=== PATIENT | male | born 1990 | race Caucasian/White ===

== ENCOUNTER 2024-04-03 13:37 | Outpatient (REF) | payer BC, SELFPAY ==
[2024-04-05 17:11] LABS: Acrosom Defect 24.5 %; Appearance Normal; Container Type 50 mL Conical; Germ Cells/mL 0.32 x10(6) (<4.00); Grade 2.5 (>=2.5); Head Shape Abnormal 27.5 %; Midpiece Defect 21.5 %; Motile/Ejaculate 11.3 x10(6) (>=9.0); Motile/mL 2.5 x10(6) (>=6.0); Motility 51 % (>=40); Semen Volume 4.5 mL (>=1.5); Sperm/mL 4.9 x10(6) (>=15.0); Strict Morph NL 3.5 % (>=4.0); Study Type Semen; WBC/mL 0.02 x10(6) (<1.00); pH 7.5 (>=7.2)
== END 2024-04-03 13:38 | disposition home or self-care (01) ==
LOC: LBN 13:37
PROVIDERS: PCP Family Medicine; Visit Provider Obstetrics & Gynecology
DX: N46.9 Male infertility, unspecified (principal); B07.0 Plantar wart
CPT/HCPCS: 89240; 89310

== ENCOUNTER 2024-04-11 15:01 | Outpatient (REF) | payer BC, SELFPAY ==
[2024-04-15 14:34] LABS: Acrosom Defect 21.5 %; Appearance Normal; Container Type 50 mL Conical; Germ Cells/mL 0.38 x10(6) (<4.00); Grade 2.5 (>=2.5); Head Shape Abnormal 31.5 %; Midpiece Defect 16.5 %; Motile/Ejaculate 75.5 x10(6) (>=9.0); Motile/mL 15.1 x10(6) (>=6.0); Motility 60 % (>=40); Sperm/mL 25.2 x10(6) (>=15.0); Study Type Semen; Tail Defect 23.5 %; pH 7.5 (>=7.2)
== END 2024-04-11 15:02 | disposition home or self-care (01) ==
LOC: LBN 15:01
PROVIDERS: PCP Family Medicine; Visit Provider Obstetrics & Gynecology
DX: Z31.69 Encounter for other general counseling and advice on procreation (principal)
CPT/HCPCS: 89240; 89310

== ENCOUNTER 2025-06-18 02:38 | Outpatient (CLI) | payer BC, SELFPAY ==
[2025-06-18 10:25] LABS: Hemoglobin A1C 4.9 % (<5.7)
[2025-06-18 13:38] LABS: Cholesterol 184 mg/dL (<200); HDL Cholesterol 76 mg/dL (>or=40)
[2025-06-18 18:31] LABS: Hepatitis C Ab w Rflx HCV PCR Negative (Negative)
[2025-06-18 18:34] LABS: HBs Antibody, Quant 4.0 mIU/mL (See Note); Hepatitis B Surface Antigen Negative (Negative)
== END 2025-06-18 02:39 | disposition home or self-care (01) ==
LOC: LBO 02:38
PROVIDERS: PCP Family Medicine; Visit Provider Family Medicine
DX: E78.5 Hyperlipidemia, unspecified (principal); R73.9 Hyperglycemia, unspecified; Z11.59 Encounter for screening for other viral diseases
CPT/HCPCS: 36415; 80061; 83695; 86704; 86706; 86803; 87340; 83036